=== PATIENT | male | born 1995 | race American Indian/Alaskan Native ===

== ENCOUNTER 2025-07-12 20:13 | Emergency (ER) | payer OTHER, SELFPAY ==
[2025-07-12 20:19] VITALS: BP 124/96; PULSE 97; RESP 26; TEMP 36.6; O2SAT 100
--- NOTE | 2025-07-12 20:34 | XR_ITS ---
Examination: Abdomen sonogram, Limited Date and time of exam: July 12, 2025, 11:06 a.m. INDICATIONS: Abdominal pain and vomiting today Technique: Real-time gamez scale transabdominal sonographic images of the upper abdomen obtained. Findings: Normal gallbladder Normal common bile duct 0.5 cm no stones Pancreatic head 2.7 cm Liver 14.9 cm no liver lesion Normal hepatopetal portal venous flow Patent IVC Impression: Negative study
[2025-07-12 21:23] LABS: Basophils # (Auto) 0.0 Thou/mm3 (0.0-0.2); Basophils % (Auto) 0 % (0-2.5); Eosinophils # (Auto) 0.0 Thou/mm3 (0.0-0.5); Eosinophils % (Auto) 0 % (0-10); Hematocrit 49.6 % (41.0-53.0); Hemoglobin 17.8 g/dL (13.5-16.0); Immature Granulocytes Auto 0.06 Thou/mm3 (0.00-0.00); Lymphocytes # (Auto) 1.6 Thou/mm3 (1.0-4.8); Lymphocytes % (Auto) 9 % (10-50); Mean Corpuscular HGB Conc 35.9 g/dl (31.0-37.0); Mean Corpuscular Hemoglobin 31.7 pg (25.0-35.0); Mean Corpuscular Volume 88 fL (80-100); Monocytes # (Auto) 0.6 Thou/mm3 (0.0-0.8); Monocytes % (Auto) 3 % (0-12); Neutrophils # (Auto) 14.4 Thou/mm3 (1.8-7.7); Neutrophils % (Auto) 87 % (37-80); Nucleated Red Blood Cell # 0.00 Thou/mm3 (0.00-0.00); Nucleated Red Blood Cell % 0 /100 WBC (0); Platelet Count 380 Thou/mm3 (140-440); RDW Standard Deviation 40.4 fL (35.1-43.9); Red Blood Count 5.61 Miln/mm3 (4.50-5.90); White Blood Count 16.6 Thou/mm3 (3.8-10.6)
[2025-07-12 21:24] LABS: Collection Type, Urine Clean Catch
[2025-07-12 21:33] LABS: Bilirubin,Urine Negative (Negative); Blood,Urine 1+ (Negative); Clarity,Urine Clear (Clear/Hazy); Color,Urine Lt-Yellow (Lt Yel-Yel); Glucose, Urine Negative (Negative); Ketones,Urine 4+ (Negative); Leukocyte Esterase,Urine Negative (Negative); Nitrite,Urine Negative (Negative); PH,Urine 5.5 (5.0-7.0); Protein,Urine 1+ (Neg - Trace); RBC,Urine 1 /hpf (0-3); Specific Gravity,Urine 1.028 (1.001-1.035); Squamous Epithelial Cell,Urine < 1 /hpf (0-5); Urobilinogen,Urine Negative mg/dL (0.0-1.0); WBC,Urine 1 /hpf (0-5)
[2025-07-12] MEDS: ONDANSETRON INJ 2 MG/ML INJ 2 ML 4 MG IVP (21:43)
[2025-07-12 21:52] LABS: Alanine Aminotransferase 26 U/L (10-49); Albumin, Serum 5.6 gm/dL (3.5-5.0); Albumin/Globulin Ratio 1.7 (1.2-2.2); Alkaline Phosphatase 100 U/L (46-116); Anion Gap 26 (7-16); Aspartate Amino Transferase 29 U/L (0-34); BUN/Creatinine Ratio 10 Ratio (12-20); Bilirubin,Total 1.2 mg/dL (0.3-1.2); Blood Urea Nitrogen 12 mg/dL (9-23); Calcium 9.9 mg/dL (8.3-10.6); Calcium (Corrected) 9.9 mg/dL (8.5-10.1); Carbon Dioxide 15.0 mMol/L (20.0-31.0); Chloride 102 mMol/L (98-107); Creatinine (Component) 1.2 mg/dL (0.6-1.3); Globulin 3.3 gm/dL (2.3-3.5); Glucose 76 mg/dL (74-106); Lipase 26 U/L (12-53); Osmolality,Calculated 283 (275-295); Potassium 3.9 mMol/L (3.4-5.1); Sodium 143 mMol/L (136-145); Total Protein 8.9 gm/dL (5.7-8.2); eGFR > 60 See Note
[2025-07-12] MEDS: SODIUM CHLORIDE 0.9% 1000 ML 1,000 ML 999 ML IV (21:54)
[2025-07-12] MEDS: PROMETHAZINE INJ 25 MG/ML VIAL 12.5 MG IM (23:25)
[2025-07-12 23:44] LABS: Amphetamine/Methamp Scrn,U Negative (Negative); Barbiturate Screen,Urine Negative (Negative); Benzodiazepines Screen,Urine Negative (Negative); Benzoylecgonine Screen, Ur Negative (Negative); Fentanyl Screen,Urine Negative (Negative); Opiate Screen,Urine Negative (Negative); THC Screen,Urine Positive (Negative)
[2025-07-12 23:45] LABS: Alcohol, Blood Medical 31.9 mg/dL (0-10.0)
[2025-07-13 01:27] LABS: Lactate (Lactic Acid) 2.1 mMol/L (0.4-2.0)
[2025-07-13] MEDS: SODIUM CHLORIDE 0.9% 1000 ML 1,000 ML 999 ML IV (01:56)
--- NOTE | 2025-07-13 03:03 | EDNOTE_ITS ---
ED Abdominal Pain RME/HPI General Chief Complaint: Abdominal Pain Stated complaint: VOMITING AND ABDOMINAL PAIN Time seen by provider: 07/12/25 20:33 Arrival date/time: 07/12/25 20:13 This is a case of 30-year-old male with history of EtOH and marijuana abuse came in in the emergency room due to abdominal pain cramping in character to the day associated with nausea vomiting nonprojectile no diarrhea no constipation no fever no chills persistence of the symptoms this patient decided to sought consult here in the emergency room Limitations: no limitations Related Data Previous Rx's ?Medication ?Instructions ?Recorded diphenhydramine HCl 25 mg tablet 50 mg (2 x 25 mg) PO TID PRN 03/11/20 (Benadryl Allergy) allergic reaction #20 tabs famotidine 20 mg tablet (Pepcid) 20 mg PO BID 30 days #60 tabs 07/13/25 ondansetron 4 mg disintegrating 4 mg PO Q8H #20 tabs 1 09/13/24 tablet Allergies Allergy/AdvReac Type Severity Reaction Status Date / Time sulfamethoxazole (From Allergy Verified 04/16/20 13:24 Bactrim) trimethoprim (From Bactrim) Allergy Verified 04/16/20 13:24 Review of Systems Review of Systems Systems Reviewed: All systems reviewed, normal except as documented Constitutional Constitutional: Reports system reviewed and no additional complaints, except as documented and Reports as per HPI Cardiovascular Cardiovascular: Reports system reviewed and no additional complaints, except as documented and Reports as per HPI Respiratory Respiratory: Reports system reviewed and no additional complaints, except as documented and Reports as per HPI Gastrointestinal Gastrointestinal: Reports system reviewed and no additional complaints, except as documented and Reports as per HPI Genitourinary Genitourinary: Reports system reviewed and no additional complaints, except as documented and Reports as per HPI Neurologic Neurologic: Reports system reviewed and no additional complaints, except as documented and Reports as per HPI Past Medical History Past Medical History CARDIAC: Positive Hypertension; Negative Cardiac Disorders or Congestive Heart Failure RESPIRATORY: Negative Chronic Obstructive Pulmonary Disease (COPD) or Asthma GENITOURINARY: Negative Renal Disease ENDOCRINE: Negative Diabetes Mellitus Type 1 or Diabetes Mellitus Type 2 HEMATOLOGIC: Negative Sickle Cell Disease Social History SMOKING STATUS: Never smoker ED Exam General Limitations: Present no limitations General appearance: Present alert, in no apparent distress and other (Patient is awake alert oriented not in distress nontoxic looking well-hydrated well nourished) Head Head exam: Present atraumatic, normocephalic and normal inspection Eye Eye exam: Present normal appearance, PERRL and EOMI ENT ENT exam: Present normal exam, normal oropharynx and mucous membranes moist Neck Neck exam: Present normal inspection, full ROM and trachea midline Chest Chest inspection: Present normal inspection and symmetric chest wall rise; Absent tenderness Respiratory Respiratory exam: Present normal lung sounds bilaterally; Absent respiratory distress, wheezes, stridor, accessory muscle use or prolonged expiratory phase Cardiovascular Cardiovascular exam: Present regular rate, normal rhythm and normal heart sounds; Absent bradycardia, tachycardia, irregular rhythm, systolic murmur or diastolic murmur Abdominal Exam Abdominal exam: Present soft, tenderness (Mild tenderness epigastric no guarding no rebound no rigidity negative psoas negative straight or negative Rovsing's negative McBurney's negative Alejandro sign negative CVA tenderness) and normal bowel sounds; Absent distention, guarding, rebound, rigidity, diminished bowel sounds, hyperactive bowel sounds, hypoactive bowel sounds, psoas sign, obturator sign, Alejandro's sign, Rovsing's sign, tenderness at McBurney's Point or hernia Extremities Exam Extremities exam: Present normal inspection and full ROM Back Exam Back exam: Present normal inspection and full ROM Neurological Exam Neurological exam: Present alert, oriented X3, CN II-XII intact, normal gait and reflexes normal; Absent motor sensory deficit Psychiatric Psychiatric exam: Present normal affect and normal mood Skin Skin exam: Present warm, dry, intact, normal color and other (Excellent skin turgor) Course Quality Measures none Orders Category Date Time Status US gall bladder Stat Exams 07/12/25 20:34 Completed Alcohol, Blood Medical Stat Lab 07/12/25 20:58 Completed CBC Stat Lab 07/12/25 20:58 Completed Comprehensive Metabolic Panel Stat Lab 07/12/25 20:58 Completed Drug Screen,Urine Stat Lab 07/12/25 20:54 Completed Lactic Acid [Lactate (Lactic Acid)] Stat Lab 07/13/25 01:18 Results Lipase Stat Lab 07/12/25 20:58 Completed Urinalysis Stat Lab 07/12/25 20:54 Completed Ondansetron Inj [Zofran Inj] Med 07/12/25 20:34 Discontinued 4 mg IVP X1 Pantoprazole Inj [Protonix Inj] Med 07/12/25 20:34 Discontinued 40 mg IVP X1 ONE Promethazine Inj [Phenergan Inj] Med 07/12/25 23:12 Active 12.5 mg IM X1 Sodium Chloride 0.9% 1000 ml [Ns] 1,000 ml Med 07/12/25 20:34 Discontinued IV 999 mls/hr Sodium Chloride 0.9% 1000 ml [Ns] 1,000 ml Med 07/13/25 01:47 Discontinued IV 999 mls/hr Vital Signs Vital signs: Vital Signs Temperature 97.8 F 07/12/25 20:19 Pulse Rate 97 07/12/25 20:19 Respiratory Rate 26 H 07/12/25 20:19 Blood Pressure 124/96 H 07/12/25 20:19 Pulse Oximetry (%) 100 07/12/25 20:19 Oxygen Delivery Method Room Air 07/12/25 20:19 Oxygen saturation is 100% in room air normal Abdominal Pain MDM MDM Narrative MDM Narrative:: This is a case of 30-year-old male with history of EtOH and marijuana abuse came in in the emergency room due to abdominal pain cramping in character to the day associated with nausea vomiting nonprojectile no diarrhea no constipation no fever no chills persistence of the symptoms this patient decided to sought consult here in the emergency room physical examination patient is awake alert oriented not in distress nontoxic looking well-hydrated well-nourished excellent skin turgor abdominal exam is benign nonsurgical no guarding no rebound no rigidity mild tenderness at the epigastric area negative psoas negative obturator negative Rovsing's negative McBurney's negative CVA tenderness blood test showed leukocytosis at 16.4 with lactic acid 2.1 patient EtOH level was 31.9+ marijuana on drug screen patient has no anemia platelet is normal kidney and liver function is normal no electrolyte imbalance urinalysis is normal ultrasound of the gallbladder is normal based on my physical examination and history there is no signs and symptoms of dehydration acute abdomen or sepsis patient lactic acid elevation and and WBC is due to EtOH abuse and vomiting patient was given a bolus of normal saline 2 L with Zofran for vomiting patient did not improve with Zofran thus Phenergan was given 12.5 IM at the time of reassessment abdominal exam is benign and nonsurgical patient denies any abdominal pain abdominal exam has no guarding no rebound no rigidity patient will follow-up with PCP in 2 days for reevaluation and for any worsening symptoms or any emergent concern return precaution in the ER is advised patient will follow-up with PCP to be referred to forestry patrolman for gastritis p atient was advised to stop alcohol and marijuana use Patient was discharged with comfortable condition walking with stable gait. Patient verbalized no further complains explained diagnosis and answered patient question. Patient is comfortable with the proposed management plan including the need to follow up with his/her primary care physician and any specialist if applicable Discussed patient for any urgent condition or worsening sx, He/She needed to go to emergency room immediately or call 911. Patient acknowledge the responsibility to follow up as instructed and to monitor her/his symptoms. For any persistence of the symptoms for more than 3-5 days return precaution advised. Discussed the result of the test and was given printed discharge instruction Patient data External records reviewed:: [facility] previous records Clinical information provided by:: patient Social determinants that could affect healthcare access:: none Patient has the following chronic illnesses:: None How is presenting disease/condition affected by chronic disease/condition?: no chronic disease Evaluation data The following diagnostics were reviewed and interpreted by me:: lab results and radiology exam(s) Lab and/or radiology exams considered but not ordered:: Reviewed Interpretation Summary: Reviewed Medications / Prescriptions Medications or Prescriptions considered but not ordered:: Given Medication administrations:: Medication Administration History Promethazine HCl (Promethazine Inj 25 Mg/Ml Vial) 12.5 mg IM X1 JAYY; Protocol Stop: 07/13/25 04:00 Last Admin: 07/12/25 23:25 Dose: 12.5 mg Documented By: OA Discontinued Medications Sodium Chloride (Ns) 1,000 mls @ 999 mls/hr IV .Q1H1M ONE Stop: 07/12/25 21:34 Last Infusion: 07/13/25 00:06 Dose: Infused Documented By: Admin: 07/12/25 21:54 Dose: 999 mls/hr Documented By: OA Sodium Chloride (Ns) 1,000 mls @ 999 mls/hr IV .Q1H1M ONE Stop: 07/13/25 02:47 Last Admin: 07/13/25 01:56 Dose: 999 mls/hr Documented By: SHEREE Ondansetron HCl (Ondansetron Inj 2 Mg/Ml Inj 2 Ml) 4 mg IVP X1 JAYY; Protocol Stop: 07/12/25 23:00 Last Admin: 12/21/25 21:43 Dose: 4 mg Documented By: CHEVY Pantoprazole Sodium (Pantoprazole Inj 40 Mg Vial) 40 mg IVP X1 ONE Stop: 07/12/25 20:35 Last Admin: 07/12/25 21:46 Dose: 40 mg Documented By: CHEVY Given Consultations Consultation(s) initiated? (list below): No Diagnosis Differential diagnosis abdominal pain: abdominal pain, gastroenteritis, pancreatitis and other (Gastritis cholelithiasis) Most likely diagnosis given after review of the tests above:: Gastritis hyperemesis cannabis Admission Indicated Admission indicated?: not indicated Explain why admission is indicated or not indicated:: Not indicated Admission Request Was there a request for admission?: No Admission Attestation Admission request attestation: Not indicated Disposition Plan Disposition Plan: Discharge Discharge Attestation Discharge Attestation: The patient and all family members were given an opportunity to ask questions and understood the discharge instructions. Discharge instructions specifically effects, indications for sooner follow up or return to the emergency department, and the expected course of current diagnosis. Patient condition: Stable Discharge Plan Plan Patient Disposition: HOME (Self Care) Patient condition on transfer: Stable Prescriptions/Referrals Prescriptions/Med Rec: New famotidine [Pepcid] 20 mg tablet 20 mg PO BID 30 Days Qty: 60 0RF ondansetron 4 mg tablet,disintegrating 4 mg PO Q8H Qty: 20 0RF No Action diphenhydramine HCl [Benadryl Allergy] 25 mg tablet 50 mg PO TID PRN (Reason: allergic reaction) Qty: 20 0RF Referrals: Trena Rueda PA-C ([facility]) [Primary Care Provider] - In 1 week Problem List Clinical Impression: Abdominal pain, Vomiting, Gastritis, ETOH abuse, Cannabis use disorder Patient/Caregiver Discharge Instructions Education Materials: Abdominal Pain, Substance Abuse and Traumatic ..., ED Gastritis (Adult), ED Vomiting (Adult), ED Alcohol Abuse Additional Instructions: Follow-up with your primary care physician in 2 days for reevaluation and to be referred to forestry patrolman for further evaluation and treatment of your gastritis he also need to follow-up with primary care physician for EtOH and marijuana abuse for any recurrence persistent worsening symptoms or any emergent condition call 911 or go to the nearest emergency room [facility] for every bouts of vomiting and for hydration avoid skipping of meals avoid alcohol soda coffee and marijuana avoid fatty fried high cholesterol food avoid skipping of meals avoid spicy Print Language: Danish Stand Alone Forms: Alejandra Award Info., Patient Portal Info Letter PA/POLICE DETENTION ATTENDANT Supervising Physician PA/POLICE DETENTION ATTENDANT Supervising Physician: Dr. Dale
[2025-07-13 04:23] LABS: Reflex Lactate? Y
[2025-07-13 04:33] VITALS: BP 122/84; PULSE 78
== END 2025-07-13 04:34 | disposition home or self-care (01) ==
PROVIDERS: Nurse Practitioner Family; Emergency Provider Emergency Medicine; PCP Nurse Practitioner Family
DX: K29.70 Gastritis, unspecified, without bleeding (principal); F12.20 Cannabis dependence, uncomplicated; F10.20 Alcohol dependence, uncomplicated; Y90.1 Blood alcohol level of 20-39 mg/100 ml
CPT/HCPCS: 36415; 76705; 80053; 80307; 80320; 81001; 83605; 83690; 85025; 96372; 96374; 96375; 99284; J2405; J2470; J2550; J7030; G0480